=== PATIENT | male | born 1955 | race Caucasian/White ===

== ENCOUNTER → 2018-08-05 11:07 | Day surgery (SDC) | payer MEDICARE, OTHER ==
--- NOTE | 2018-08-04 14:59 | HP ---
AMENDED REPORT NOW INCLUDES DESIGNATED COSIGNER CC: Dr. Denia Langston * ADMISSION HISTORY AND PHYSICAL: DATE OF ADMISSION: 08/05/18 ATTENDING SURGEON: Dr. Osbaldo Santos.* (DICTATED BY NIYAH BURGER) CHIEF COMPLAINT: Umbilical and right inguinal hernias. HISTORY OF PRESENT ILLNESS: This is a 63-year-old male, who first noted swelling just above the umbilicus beginning a couple of months ago. He denies any pain related to the area and denies any GI or symptoms. He was referred and seen by Dr. Santos in the office on 07/17/18. Exam at that time confirmed the presence of a reducible nontender mass at the umbilicus consistent with umbilical hernia. Also noted on exam was a right inguinal (probable direct) hernia. That hernia had been unknown to the patient and had also been otherwise asymptomatic. Dr. Santos discussed with the patient the options including watchful waiting versus repair. The patient understands the use of mesh and the risks, benefits, and alternatives. He would like to proceed as scheduled with laparoscopic repair of right inguinal hernia with mesh and open repair of umbilical hernia with possible mesh. PAST MEDICAL HISTORY: Hypertension, coronary artery disease (status post single stent to the LAD in 1995 without any subsequent events or symptoms), BPH , obesity. PAST SURGICAL HISTORY: Cardiac catheterization with angioplasty and stenting as noted above; vasectomy. CURRENT MEDICATIONS: 1. Atenolol 25 mg once daily. 2. Tamsulosin 0.4 mg b.i.d. 3. Aspirin 81 mg q. day (the patient has held for surgery, his last dose was on 07/30/18). 4. Vitamin D 2000 international unit once daily. DRUG ALLERGIES: He had an unknown childhood reaction to HORSE SERUM. FAMILY HISTORY: Negative for anesthesia problems, bleeding, or clotting disorders. SOCIAL HISTORY: The patient is . He is a retired computer support analyst. He denies use of tobacco. He drinks approximately 1 drink per month or less. He denies any other recreational drug use. REVIEW OF SYSTEMS: General: No recent constitutional symptoms or acute illnesses other than described in the HPI. He states that his weight has been stable. His primary care provider notes indicate recent foot infection, which has since healed. HEENT: No symptoms or changes noted. Cardiovascular: No chest pain, palpitations. No history of murmur. He is treated for hypertension. He does not follow recently with Cardiology. Respiratory: No chronic cough or shortness of breath. GI: No problems reported. See also above per HPI. I did not ask him about screening colonoscopy. : He does have some BPH with nocturia x3. No new or additional symptoms. Endocrine: No diabetes or thyroid dysfunction. Remainder of review of systems is negative. PHYSICAL EXAMINATION GENERAL: Well-nourished, somewhat obese male, in no acute distress. VITAL SIGNS: Height 68 inches, weight 210 pounds. Blood pressure 142/84, pulse 72, respirations 18. HEENT: Pupils are equal, round, and reactive. EOMs intact. No conjunctival pallor. Oropharynx: Teeth in good repair. No intraoral lesions. NECK: No lymphadenopathy, thyromegaly, or masses. LUNGS: Clear to auscultation. No rales or wheezes. HEART: Regular rate and rhythm. No murmur noted. ABDOMEN: Somewhat obese. He does have diastasis recti in the upper mid abdomen. Separate from this and just above the umbilicus is a reducible nontender mass consistent with umbilical hernia. I would estimate the defect to be approximately 2 to 2.5 cm. On standing exam, there is a palpable bulge in the right inguinal area consistent with hernia. It is nontender and reducible. No other palpable masses or organomegaly. No palpable hernia on the left. GENITALIA: Testes otherwise normal. NEUROLOGICAL: Grossly intact. SKIN: Warm and dry. No suspicious rashes or lesions. IMPRESSION: 1. Umbilical hernia. 2. Right inguinal hernia. PLAN: Laparoscopic repair of right inguinal hernia with mesh; open repair of umbilical hernia with possible mesh. NIYAH BURGER [id number]/[facility] #: [id number] HERMAN
[~2018-08-05 11:07] MED LIST: Buffered Lidocaine 0.9% SYRIN* 5 ML/SYR SYRINGE INTRADERM ONE; Buffered Lidocaine 0.9% SYRIN* 5 ML/SYR SYRINGE ONE; Bupivacaine 0.5% W/EPI SDV* 30 ML VIAL ONE; Dexamethasone IV* 4 MG/ML 1 ML (4 MG) IV SLOW PU ONE; Dexamethasone IV* 4 MG/ML 1 ML (4 MG) ONE; DiMENhydriNATE IV* 50 MG/ML VIAL IV PUSH PRN; Famotidine IV* 10 MG/ML 2 ML (20 mg) IV ONE; Famotidine IV* 10 MG/ML 2 ML (20 mg) ONE; Glycopyrrolate IV* 0.2 MG/ML 1 ML VIAL ONE; Ketorolac INJ* 30 MG/ML 1 ML VIAL ONE; Lidocaine 2% PF * 5 ML VIAL ONE; Midazolam* 1 MG/ML 2 ML VIAL (2 MG) ONE; Naloxone* 0.4 MG/ML 1 ML VIAL IV PRN; Ondansetron INJ* 2 MG/ML VIAL IV PRN; Ondansetron INJ* 2 MG/ML VIAL ONE; Rocuronium* 10 MG/ML VIAL ONE; Sugammadex * 200 MG/2 ML VIAL IV PUSH ONE; ceFAZolin 2 GM in NS PREMIX(*) 2 GM/100 ML BAG IVPB ONE; fentaNYL* 50 MCG/ML 2 ML VIAL (100 MCG VIAL) IV PRN; fentaNYL* 50 MCG/ML 5 ML VIAL (250 MCG VIAL) ONE; oxyCODONE/Acetamin 5/325 MG* TAB PO PRN
--- NOTE | 2018-08-05 14:49 | BRIEFOPN ---
Brief Operative Note - Surgery Procedures: Procedures Pre-OP Diagnoses: Right inguinal hernia, umbilical hernia Post-op Diagnosis: right inguinal hernia, umbilical hernia, epigastric hernia Procedure: laparoscopic Right inguinal hernia repair with mesh, open ventral hernia repair with mesh Surgeon: Danielle Asst: Placido MONGE Anethesia: RAFAEL EBL: 50cc IVF: crystalloid Specimen: none Drains: none
[2018-08-05 16:11] VITALS: BP 159/91
--- NOTE | 2018-08-06 11:22 | OP ---
CC: Dr. Denia Langston * DATE OF OPERATION: 08/05/18 - [facility] DATE OF : 51 SURGEON: Osbaldo Santos MD EQU[employer]MENT SERVICE LEAD: NIYAH student, Placido Avila. ANESTHESIOLOGIST: Dr. Jefferson. ANESTHESIA: General. PRE-OP DIAGNOSIS: Right inguinal hernia and umbilical hernia. POST-OP DIAGNOSES: Right inguinal hernia, umbilical hernia, and epigastric hernia. OPERATIVE PROCEDURES: Laparoscopic right inguinal hernia repair with mesh and open ventral hernia repair with mesh. ESTIMATED BLOOD LOSS: 50 cc. FLUIDS: Crystalloid fluid given. SPECIMEN: None. DRAINS: None. DESCRIPTION OF PROCEDURE: The patient was marked in the preoperative area. Consent was signed. He was brought to the operating room and placed on the operating table in supine position. Preoperative antibiotics were given. Sequential devices were placed on bilateral lower extremities. General anesthesia was induced. The patient's groin and abdomen were clipped off hair and prepped and draped in the standard surgical fashion. A time-out was performed. An infraumbilical incision was made, this was deepened down to the rectus pillar on the left. Fascia was incised and the rectus pillar retracted laterally opening up preperitoneal space. This was dissected bluntly with the finger of surgeon and then a 12-mm trocar was inserted. This preperitoneal space was allowed to insufflate to a pressure of 12 mmHg and the camera was inserted. There was no evidence of bleeding and the camera dissection was utilized to break up loose areolar tissue right down to the pubic symphysis. Two additional 5-mm trocars were then placed in lower midline. Attention was turned towards Elliot's ligament on the left, this was cleared off as well as Elliot's ligament on the right. A large direct hernia was identified. We started reducing this, but it did seem quite large and so we continued with additional dissection first, identifying the epigastric vessels keeping them anteriorly and opening up [place] space laterally. The epigastric vessels were robust and these were retracted laterally to fully see the extent of the direct hernia. Gentle traction was then utilized until we could reduce the contents. The spermatic structures were identified, they were skeletonized. There was peritoneum extending along this area, but it was not in indirect hernia sac. A lipoma of the cord was dissected down with blunt dissection. A Bard 3D right-sided mesh, medium, was utilized, it was placed into the peritoneal plane and allowed to unfurl and tacked to Elliot's ligament as well as the rectus muscle. It was allowed to unfurl covering up the full right myopectineal orifice and tacked laterally as well, taking care not to get into the triangle of doom. Next, the preperitoneal plane was allowed to collapse. Hemostasis was excellent. The mesh stayed intact without wrinkling and was not tight. The 5-mm trocars were removed and then the 12-mm trocar was removed as well. Attention was turned towards the umbilicus. We had already cleared off the fascia inferiorly to the hernia sac in the dissection of the rectus pillar. We extended this across the midline and then the incision needed to be increased. This was increased on both sides and we are able to isolate the umbilicus skin around a [place] drain. This was sharply dissected off of the umbilical hernia. Umbilical hernia appeared small, approximately half a centimeter. However, when we dissected free the superior aspect, a large epigastric hernia was identified approximately a centimeter and a half away from this umbilical hernia. This defect approximately 3 cm after dissecting it clear. We made a plane preperitoneal below the fascia and we did not enter into the sac. The sac was reduced and an 8 cm dual-layer mesh was then inserted into this space that was made through the epigastric hernia. It was allowed to unfurl and the inferior aspect crossed our small half a centimeter umbilical hernia. We tacked this laterally with a single tack and then we were able to suture the tails superiorly and inferiorly. The full defect was covered appropriately. We then irrigated. Hemostasis was excellent and reapproximated the loose area fascia with 0 Polysorb suture to fully cover the mesh both at the epigastric hernia and at the small umbilical hernia. Again, irrigation was used. Hemostasis was excellent. We turned our attention to the incision overlying the left rectus muscle and an additional 0 Vicryl suture in a figure of eight eight was utilized at this site to reapproximate. We then tacked down the umbilical scan with a 2-0 Vicryl stitch and reapproximated the skin with 3-0 Vicryl followed by a 4-0 Monocryl subcuticular sutures. The other two 5 mm trocar sites were closed with 4-0 Monocryl. Steri-Strips and sterile dressings were applied. The patient tolerated the procedure well and was woken up in the OR and transferred to PACU in stable condition. [id number]/[facility] #: [id number] [facility] HOSPITALFreda
== END | disposition home or self-care (01) ==
LOC: OR 11:07
PROVIDERS: ATTEND Surgery
DX: K40.90 Unilateral inguinal hernia, without obstruction or gangrene, not specified as recurrent (principal); K43.9 Ventral hernia without obstruction or gangrene; K42.9 Umbilical hernia without obstruction or gangrene; I10 Essential (primary) hypertension; I25.10 Atherosclerotic heart disease of native coronary artery without angina pectoris; E66.9 Obesity, unspecified; Z95.5 Presence of coronary angioplasty implant and graft; Z79.82 Long term (current) use of aspirin
CPT/HCPCS: C1781; J0690; J1100; J1885; J2250; J2405; J3010